=== PATIENT | female | born 1935 | race Caucasian/White ===

== ENCOUNTER 2018-09-13 14:18 | Inpatient (IN) | payer OTHER ==
[~2018-09-13] VITALS: Ht 157.5 cm; Wt 54.1 kg
[2018-09-13 15:25] VITALS: Ht 157.5 cm; Wt 54.1 kg
--- NOTE | 2018-09-13 15:46 | NUR ---
PATIENT BIB [facility] FOR FALL AND ABRASIONS TO BILATERAL HANDS. PATIENT IS ALERT AND ORIENTED X 3. SHE STATES THAT SHE WAS DIAGNOSED WITH PARKINSONS DISEASE IN 2006. TODAY, WHILE WAITING FOR ASSISTANCE FROM HER CAREGIVER, SHE VOMITED HER LUNCH AND SUBSEQUENTLY FELL. BS ACTIVE X 4 QUADS, PATIENT DENIES NAUSEA NOW. PATIENT HAS BILATERAL UPPER AND LOWER EXTREMITY WEAKNESS DUE TO HER PARKINSONS DISEASE. PATIENT SPEAKS SLOWLY. BREATHING IS EVEN AND UNLABORED, NO ADDITIONAL S/S OF DISTRESS NOTED. WILL CONTINUE TO MONITOR.
[2018-09-13 16:51] LABS: CALCIUM 9.7 mg/dL (8.5-10.1); CARBON DIOXIDE 32.4 mmol/L (21-32); CHLORIDE SERUM 101 mmol/L (98-107); CREATININE SERUM 0.8 mg/dL (0.6-1.0); GLUCOSE SERUM 100 mg/dL (74-106); POTASSIUM SERUM 3.6 mmol/L (3.5-5.1); SODIUM SERUM 142 mmol/L (136-145)
[2018-09-13 16:56] LABS: ALBUMIN 3.5 g/dL (3.4-5.0); ALKALINE PHOSPHATASE 84 U/L (46-116); ALT/SGPT 9 U/L (14-59); AST/SGOT 17 U/L (15-37); BILIRUBIN TOTAL 0.5 mg/dL (0.20-1.00)
[2018-09-13 17:00] LABS: BASOPHIL % 0.3 % (0-2); PLATELET COUNT 334 x10^3mcL (130-400); RED CELL DISTRIBUTION WIDTH 13.6 % (11.5-14.5)
--- NOTE | 2018-09-13 17:40 | NUR ---
PATIENT ON GURNEY, RELAXED WITH NO S/S OF DISTRESS NOTED. BREATHING IS EVEN AND UNLABORED. GURNEY PLACED IN LOW POSITION, CALL LIGHT WITHIN REACH, SON IS BEDSIDE. PT VOICES NO CONCERNS AT THIS TIME.
--- NOTE | 2018-09-13 18:41 | NUR ---
WENT TO HELP PATIENT TO BSC, PATIENT WAS INCONTINENT OF BOWEL AND BLADDER. CLEANED PATIENT UP AND PLACED BACK IN BED. BREATHING EVEN AND UNLABORED, NO ADDITIONAL S/S OF DISTRESS NOTED. WILL CONTINUE TO MONITOR.
--- NOTE | 2018-09-13 19:10 | NUR ---
REPORT RECEIVED FROM LAKSHMI HASSAN. PT LAYING IN BED, AWAKE AND ALERT, 2 BED RAILS UP, BED IN LOW AND LOCKED POSITION, CALL LIGHT W/IN REACH. NAD NOTED AT THIS TIME.
--- NOTE | 2018-09-13 19:21 | NUR ---
PROVIDED REPORT TO SONYA PATEL FOR RESUMPTION OF CARE.
[2018-09-13 19:25] LABS: microscopic required? YES; urine erythrocyte TRACE (NEGATIVE)
--- NOTE | 2018-09-13 20:32 | NUR ---
MEDICATION ADMINISTERED PER MD ORDER
[2018-09-13] MEDS ORDERED: SINEMET 25-1001 TAB (21:12)
[2018-09-13] MEDS ORDERED: MULTI-VITAMINS1 TAB PO (21:12)
--- NOTE | 2018-09-13 21:58 | NUR ---
REPORT GIVEN TO LARRY HASSAN
--- NOTE | 2018-09-13 22:20 | NUR ---
RECEIVED PT FROM ED VIA RUT ACCOMPANIED BY RN. AA&O X3. NO SOB ON ROOM AIR. BREATHING EVEN AND UNLABORED. NO C/O PAIN. NO DISTRESS NOTED. IV TO LFA, INTACT. DRESSING TO RIGHT HAND, C/D/I. SAFETY MEASURES IN PLACE. BED IN LOWEST POSITION. SIDE RAILS UP X2. BED ALARM ON. DEMONSTRATED HOW TO USE THE CALL LIGHT. CALL LIGHT WITHIN REACH.
--- NOTE | 2018-09-13 23:00 | NUR ---
PT VOIDED W/ YELLOW URINE TO BED. CHANGED LINENS, SHEETS, CLEANED PERINEAL AREA. PT TOLERATED WELL. WILL CONT TO MONITOR.
[2018-09-14 00:02] LABS: MAGNESIUM 2.4 mg/dL (1.8-2.4); PHOSPHOROUS 3.5 mg/dL (2.5-4.9)
--- NOTE | 2018-09-14 00:11 | NUR ---
DR ROJAS @ BEDSIDE. NURSING UPDATES. NO NEW ORDERS @ THIS TIME. RIGHT WRIST/HAND SKIN TEAR MEASURED W/ PICTURES TAKEN. LENGTH 3CM W/ 1CM WIDTH W/ NO DEPTH/VISIBLE TISSUE/BONE. SKIN ZGUARD APPLIED TO BUTTOCKS FOR BLANCHABLE REDNESS.
[2018-09-14 00:15] VITALS: BP 162/58
--- NOTE | 2018-09-14 01:30 | NUR ---
DR ROJAS NOTIFIED OF HIGH BLOOD PRESSURE AND NS INFUSING @ 100ML/HR. RECOMMENDED REVIEWING IF N/S SHOULD BE REDUCED IN RATE. STATED SHE WOULD LOOK AND REVIEW IT AND CHANGE IF NEED BE. AWAITING ORDERS.
--- NOTE | 2018-09-14 02:03 | NUR ---
PT SLEEPING AT THIS TIME. NO SOB ON ROOM AIR. BREATHING EVEN AND UNLABORED. NO DISTRESS NOTED. SAFETY MEASURES IN PLACE. CALL LIGHT WITHIN REACH. BED ALARM ON. WILL CONTINUE TO MONITOR.
--- NOTE | 2018-09-14 05:28 | NUR ---
X-RAY TECH @ BEDSIDE FOR MORNING XRAY OF WRIST.
[2018-09-14 05:56] VITALS: BP 156/56
[2018-09-14 06:31] LABS: BASOPHIL % 0.4 % (0-2); PLATELET COUNT 267 x10^3mcL (130-400); RED CELL DISTRIBUTION WIDTH 13.8 % (11.5-14.5)
--- NOTE | 2018-09-14 06:32 | NUR ---
PT SLEPT WELL THROUGHOUT SHIFT. NO SOB ON ROOM AIR. NO C/O PAIN. NO DISTRESS NOTED. ALL NEEDS ATTENDED TO. SAFETY MEASURES MAINTAINED. CALL LIGHT WITHIN REACH. BED ALARM ON. WILL ENDORSE CONTINUITY OF CARE TO ONCOMING RN.
[2018-09-14 06:58] LABS: CALCIUM 8.6 mg/dL (8.5-10.1); CARBON DIOXIDE 30.4 mmol/L (21-32); CHLORIDE SERUM 105 mmol/L (98-107); CREATININE SERUM 0.8 mg/dL (0.6-1.0); GLUCOSE SERUM 80 mg/dL (74-106); MAGNESIUM 2.3 mg/dL (1.8-2.4); PHOSPHOROUS 3.5 mg/dL (2.5-4.9); POTASSIUM SERUM 3.3 mmol/L (3.5-5.1); SODIUM SERUM 143 mmol/L (136-145)
--- NOTE | 2018-09-14 08:00 | NUR ---
PT IS AAOX3. NO SOB RM AIR. DENIES PAIN AT THIS TIME. GENERALIZED WEAKNESS. IVF NSS AT 75 ML/HR INFUSING; LFA SITE PATENT AND WITHOUT INFILTRATION. NSG ASSESSMENT DONE; SAFETY AND FALL PRECAUTION REINFORCED; WILL CONTINUE TO MONITOR STATUS.
[2018-09-14 08:48] VITALS: BP 155/74
--- NOTE | 2018-09-14 11:00 | NUR ---
SEEN BY PHYSICAL THERAPIST TODAY;
[2018-09-14 12:39] VITALS: BP 128/48
[2018-09-14 16:58] VITALS: BP 133/47
--- NOTE | 2018-09-14 18:13 | NUR ---
NO SIGNIFICANT CHANGES IN NEURO STATUS. PT IS OX4, SPEECH CLEAR, ABLE TO FOLLOW VERBAL COMMANDS AND MAKE NEEDS KNOWN. WILL CONTINUE TO MONITOR STATUS.
--- NOTE | 2018-09-14 18:33 | NUR ---
IVF SITE ON THE LFA IS LEAKING. CATH TAKEN OUT WHICH IS INTACT; PT WANTS TO WAIT FOR RESITE UNTIL VISITOR LEAVES.
--- NOTE | 2018-09-14 19:16 | NUR ---
IVF RESITED ON THE RFA WITH ANGIO 24 BY SONYA ALEXANDRA. IVF RESUMED NSS AT 75 ML/HR.
--- NOTE | 2018-09-14 19:50 | NUR ---
RECEIVED REPORT FROM DAY SHIFT RN. PT RESTING IN BED WITH EYES CLOSED. EASILY AROUSABLE WITH VERBAL STIMULI. NO SOB ON ROOM AIR. NO C/O PAIN. NO DISTRESS NOTED. DRESSING TO RIGHT HAND, CDI. SAFTEY MEASURES IN PLACE. BED IN LOWEST POSITION. SIDE RAILS UP X2. INSTRUCTED PT TO USE THE CALL LIGHT FOR ASSISTANCE. CALL LIGHT WITHIN REACH.
[2018-09-14 20:27] LABS: AMPHETAMINE QUAL UR NONE DETECTED (See below)
[2018-09-14 21:50] VITALS: BP 134/53
--- NOTE | 2018-09-15 02:15 | NUR ---
PT SLEEPING AT THIS TIME. BREATHING EVEN AND UNLABORED. NO FACIAL GRIMACING. NO DISTRESS NOTED. SAFETY MEASURES IN PLACE. CALL LIGHT WITHIN REACH. WILL CONTINUE TO MONITOR.
[2018-09-15 05:51] VITALS: BP 148/63
--- NOTE | 2018-09-15 06:27 | NUR ---
PT SLEPT WELL THROUGHOUT SHIFT. NO SOB ON ROOM AIR. NO C/O PAIN. NO DISTRESS NOTED. CLEANED PT, REPOSITIONED AND MADE COMFORTABLE. SAFETY MEASURES MAINTAINED. CALL LIGHT WITHIN REACH. WILL ENDORSE CONTINUITY OF CARE TO ONCOMING RN.
[2018-09-15 06:34] LABS: BASOPHIL % 0.3 % (0-2); PLATELET COUNT 265 x10^3mcL (130-400); RED CELL DISTRIBUTION WIDTH 14.2 % (11.5-14.5)
[2018-09-15 06:40] LABS: CALCIUM 8.4 mg/dL (8.5-10.1); CHLORIDE SERUM 107 mmol/L (98-107); CREATININE SERUM 0.6 mg/dL (0.6-1.0); GLUCOSE SERUM 86 mg/dL (74-106); PHOSPHOROUS 3.2 mg/dL (2.5-4.9); POTASSIUM SERUM 3.7 mmol/L (3.5-5.1); SODIUM SERUM 143 mmol/L (136-145)
--- NOTE | 2018-09-15 08:00 | NUR ---
RECEIVED PATIENT ALERT/ORIENTED TO PERSON/PLACE AND TIMES. ABLE TO MEDE NEEDS KNOWN. ABLE TO FOLLOW COMMAND. TELE#18, SR W/ DEPRESSED S-T SEGMENT. HR = 61. DENIED CHESET PAIN. NO RESP DISTRESS ON RA. O2 SAT 96%. FINISHED 50% OF BREAKFAST BY ASSIST. IVF OF NS 75CC/HR. IV SITE TO RFA INRACT. URINE INCONT. MAX ASSIST FOR ADL'S. NO S/S OF PAIN. CALL LUDIVINA [place]. PATIENT IS DNR.
[2018-09-15 10:52] VITALS: BP 184/78
[2018-09-15 11:15] VITALS: BP 164/79
--- NOTE | 2018-09-15 11:15 | NUR ---
B/P = 184/78 (LUE). RECHECKED B/P 164/79 (RUE). NOTIFIED TO JOVAN GARCIA. NO NEW ORDER GIVEN.
[2018-09-15 14:40] VITALS: BP 156/61
[2018-09-15 18:21] VITALS: BP 199/72
--- NOTE | 2018-09-15 18:45 | NUR ---
URINE INCONT. CHANGED X4. NO BM SEEN THIS SHIFT. IV SITE TO RFA INTACT. NO S/S OF PAIN. ENDORSED CARE TO NOC NURSE.
--- NOTE | 2018-09-15 19:25 | NUR ---
B/P = 199/72 (RUE), REPORTED TO DR. MCNAIR VIA [facility]. ENDORSED CARE TO [facility] NURSE.
--- NOTE | 2018-09-15 19:40 | NUR ---
RECEIVED REPORT FROM DAY SHIFT RN. PT RESTING IN BED. AA&O X4. NO SOB ON ROOM AIR. BREATHING EVEN AND UNLABORED. NO C/O CHEST PAIN. NO DISTRESS NOTED. IV TO RFA, NS INFUSING. SAFETY MEASURES IN PLACE. BED IN LOWEST POSITION. SIDE RAILS UP X2. INSTRUCTED PT TO USE THE CALL LIGHT FOR ASSISTANCE. CALL LIGHT WITHIN REACH. BED ALARM ON.
[2018-09-15 21:35] VITALS: BP 167/60
--- NOTE | 2018-09-16 02:38 | NUR ---
PT SLEEPING AT THIS TIME. NO SOB ON ROOM AIR. BREATHING EVEN AND UNLABORED. NO DISTRESS NOTED. CALL LIGHT WITHIN REACH. WILL CONTINUE TO MONITOR.
[2018-09-16 05:38] VITALS: BP 180/75
[2018-09-16 06:48] LABS: CALCIUM 8.7 mg/dL (8.5-10.1); CARBON DIOXIDE 28.7 mmol/L (21-32); CHLORIDE SERUM 105 mmol/L (98-107); CREATININE SERUM 0.7 mg/dL (0.6-1.0); GLUCOSE SERUM 90 mg/dL (74-106); POTASSIUM SERUM 3.6 mmol/L (3.5-5.1); SODIUM SERUM 142 mmol/L (136-145)
--- NOTE | 2018-09-16 07:24 | NUR ---
PT SLEPT WELL THROUGHOUT SHIFT. NO SOB ON ROOM AIR. NO C/O CHEST PAIN. NO DISTRESS NOTED. HIGH BP THIS MORNING. PER DR GREENBERG, GIVE LISINOPRIL EARLY. SAFETY MEASURES MAINTAINED. CALL LIGHT WITHIN REACH. CONTINUITY OF CARE ENDORSED TO DAY SHIFT RN.
--- NOTE | 2018-09-16 08:00 | NUR ---
ALERT AND ORIENTED. SLOW RESPONSES. VERY SOFT SPOKEN. GENERALIZED WEAKNESS, USES WHEELCHAIR AT [place]. ASSIST WITH MOST ADL'S. BREATHING FREELY ON RA. DENIES ANY PAIN. REPOSITIONED FOR BREAKFAST. NS INFUSING 25 CC HOUR TO RT FA. ROOM NEAR NURSES STATION. CALL LIGHT WITH IN REACH. BED ALARM O N.
[2018-09-16 08:12] LABS: BASOPHIL % 0.7 % (0-2); PLATELET COUNT 290 x10^3mcL (130-400); RED CELL DISTRIBUTION WIDTH 13.5 % (11.5-14.5)
[2018-09-16 09:00] VITALS: BP 212/75
[2018-09-16 12:30] VITALS: BP 184/69
[2018-09-16 14:57] VITALS: BP 174/71
--- NOTE | 2018-09-16 15:34 | NUR ---
SPOKE WITH RU LEE. HECTOR FROM [facility] WILL BE COMING TO [facility] FOR RETURN TO [facility]. DONNA MIRELES MADE AWARE,
[2018-09-16 17:38] VITALS: BP 211/84
--- NOTE | 2018-09-16 17:39 | NUR ---
Rizwan GARCIA NP RE: PTS BP 211/84 HR 77. NEW ORDER TO HOLD 2100 DOSE SINEMET.
--- NOTE | 2018-09-16 17:46 | NUR ---
PT SEEN BY HECTOR FROM [facility]. [facility] DOES NOT ACCEPT PARAMETERS ON BP MEDS. PT WILL BE SEEN BY WEEKLY BY MEDICAL STAFF. ADJUSTMENTS IN BP MEDS CAN BE ADJUSTED THEN. HECTOR WENT TO GO SEE PATHOLOGY ASSISTANT.PT SON CHI FRANK.
--- NOTE | 2018-09-16 18:56 | NUR ---
RESTING QUIETLY . BREATHING FREELY ON RA. MOD TOMAX ASSIST WITH ALL MEDS. SON CHI WAS WITH PT MOST OF THE DAY. NO C/O PAIN. NS INFUISNG 40 CC HOUR. SINEMET TO BE HELD THIS EVENING 2100 DOSE. CALL LIGHT WITHIN REACH.
--- NOTE | 2018-09-16 19:50 | NUR ---
RECEIVED PT FROM DAYSHIFT NURSEMACI-SONYA. PT IS A/O X3. ON TELE# 18, SR WITH DEPRESSED ST. PERIPHERAL PULSES PALPABLE. LUNG SOUNDS CTA. ON ROOM AIR. O2 SAT- 95%. ACTIVE BOWEL SOUNDS IN ALL QUADRANTS. PT IS INCONTINENT. PT HAS GENERALIZED WEAKNESS. DRESSING ON R HAND, CDI. IV CATH TO RFA IS PATENT, AND RUNNING NS AT 40 CC/HR. WILL CONTINUE TO MONITOR.
[2018-09-16 21:22] VITALS: BP 148/63
--- NOTE | 2018-09-17 06:02 | NUR ---
PT SEEN ASLEEP. BREATHING IS EVEN AND UNLABORED. NO ACUTE DISTRESS NOTED AT THIS TIME. WILL ENDORSE CONTINUITY OF CARE TO DAYSHIFT NURSE.
[2018-09-17 06:15] VITALS: BP 172/72
[2018-09-17 06:26] LABS: BASOPHIL % 0.5 % (0-2); PLATELET COUNT 290 x10^3mcL (130-400); RED CELL DISTRIBUTION WIDTH 14.1 % (11.5-14.5)
[2018-09-17 06:34] LABS: CALCIUM 8.9 mg/dL (8.5-10.1); CARBON DIOXIDE 27.4 mmol/L (21-32); CHLORIDE SERUM 107 mmol/L (98-107); CREATININE SERUM 0.6 mg/dL (0.6-1.0); GLUCOSE SERUM 76 mg/dL (74-106); POTASSIUM SERUM 3.7 mmol/L (3.5-5.1); SODIUM SERUM 144 mmol/L (136-145)
--- NOTE | 2018-09-17 06:42 | NUR ---
CALLED DR. HENNESSY, AND NOTIFIED HIM OF ELEVEATED BLOOD PRESSURE 206/76, 197/83 AND 204/75. ORDERED TO GIVE ZESTRIL NOW.
--- NOTE | 2018-09-17 06:48 | NUR ---
ADMINISTERED ZESTRIL ORDERED BY DR. HENNESSY.
--- NOTE | 2018-09-17 07:35 | NUR ---
RECEIVED PT FROM VISUAL MERCHANDISING MANAGER. PT ASLEEP BUT AROUSABLE. DENIES PAIN/HEADACHE/CHEST PAIN AT THIS TIME. PT ON ROOM AIR, NO RESP DISTRESS NOTED. LUNGS CTA. IV ACCESS RIGHT ARM INFUSING NS AT 40ML/HR C/D/I. NO REDNESS OR SWELLING NOTED. PT HAS SKIN TEAR ON RIGHT HAND, DRESSING C/D/I. DENIES ANY ISSUES WITH ELIMINATION AT THIS TIME. ON TELE #18. SAFETY MEASURES IN PLACE, BED LOW AND LOCKED. CALL LIGHT WITHIN REACH.
--- NOTE | 2018-09-17 07:37 | NUR ---
ENDORSED CONTINUITY OF CARE TO CANDY
[2018-09-17] MEDS ORDERED: ZESTRIL20 MG PO (08:50)
[2018-09-17] MEDS ORDERED: NOR5 PO (08:51)
[2018-09-17 10:49] VITALS: BP 172/76
--- NOTE | 2018-09-17 11:10 | NUR ---
PT AWAKE, FAMILY AT BEDSIDE. NO ACUTE DISTRESS NOTED. BLOOD PRESSURE RE-CHECK 172/76 (108) HR 84. WILL CONT TO MONITOR, SAFETY MAINTAINED.
--- NOTE | 2018-09-17 12:47 | NUR ---
CALLED WAN GEOGRAPHIC INFORMATION SCIENTIST TO REPORT PATIENT BP 180/76 (98) HR 74. PER GEOGRAPHIC INFORMATION SCIENTIST PARAMETERS FOR HYDRALAZINE PRN IS SBP ABOVE 160.
[2018-09-17 12:55] VITALS: BP 194/80
--- NOTE | 2018-09-17 13:02 | NUR ---
PT BLOOD PRESSURE 194/80 (103) HR 76. PT DENIES HEADACHE OR PAIN AT THIS TIME. HYDRAXLAZINE ADMINISTERED ORDERED PRN (SEE EMAR). WAN Jc MOTOR VEHICLE EXAMINER AWARE.
--- NOTE | 2018-09-17 13:17 | NUR ---
CALLED AND SPOKE TO ESSIE(N.P.) ASSIGNED TO THIS PT AND ASKED HER OF PLAN RE-CURRENT HIGH BP. ESSIE SAYS SHE WILL ADD COZAAR FOR BP. JOHANA HASSAN ASSIGNED TO THIS PT MADE AWARE OF ABOVE.
[2018-09-17 13:24] VITALS: BP 127/50; BP 157/76
[2018-09-17 13:56] VITALS: BP 127/50
--- NOTE | 2018-09-17 13:57 | NUR ---
PT BP AFTER ADMINISTRATION OF HYDRALAZINE 127/50 (72) HR 96. NO ACUTE DISTRESS NOTED. SAFETY MEASURES MAINTAINED.
--- NOTE | 2018-09-17 15:12 | NUR ---
PHYSICAL THERAPY DAILY NOTES CO-SIGN All documentation done by the Vacuum Bottle Assembler for 09/17/18 has been reviewed. I agree with the documentation. Reviewed/Co-Signed by: Tricia Choe PT Documentation Done by:ARMINDA CARRIZALES
[2018-09-17] MEDS ORDERED: COZ25 PO (16:40)
[2018-09-17 17:02] VITALS: BP 157/76
--- NOTE | 2018-09-17 17:15 | NUR ---
PT DISCHARGED TO ASSISTED LIVING VIA WHEELCHAIR IN SON'S CAR. DISCHARGE INSTRUCTIONS GIVEN TO PATIENT AND SON. VERBALIZED UNDERSTANDING, EDUCATION PROVIDED. DISCHARGE PHOTOS OF RIGHT AND LEFT HAND SKIN TEAR DOCUMENTED. IV REMOVED WITH CATHETER INTACT. NO REDNESS, SWELLING OR BLEEDING NOTED. SAFETY MEASURES MAINTAINED. PT WHEELED TO CAR WITH ASSISTANT BASEBALL COACH. TELE BOX 18 RETURNED TO [facility].
== END 2018-09-17 17:17 | DRG 304 ==
LOC: ED 14:18 → EDBD 14:18 → DU 21:09
PROVIDERS: Emergency Medicine; ADMIT General Practice
DX: I16.0 Hypertensive urgency (principal); N17.0 Acute kidney failure with tubular necrosis; N39.0 Urinary tract infection, site not specified; G90.8 Other disorders of autonomic nervous system; S61.411A Laceration without foreign body of right hand, initial encounter; G20 Parkinson's disease; F02.80 Dementia in other diseases classified elsewhere, unspecified severity, without behavioral disturbance, psychotic disturbance, mood disturbance, and anxiety; Z68.21 Body mass index [BMI] 21.0-21.9, adult; Z66 Do not resuscitate; Z91.81 History of falling; W01.0XXA Fall on same level from slipping, tripping and stumbling without subsequent striking against object, initial encounter; Y92.091 Bathroom in other non-institutional residence as the place of occurrence of the external cause
CPT/HCPCS: 83880; 87804; 97110-GP; 97116-GP; 97530-GP; C9113; J0360; J0696; J2405; J2765; J3490; J7030; J7040; Q0092

== ENCOUNTER 2019-01-30 18:22 | Emergency (ER) | payer OTHER ==
[~2019-01-30] VITALS: Ht 152.4 cm; Wt 59.0 kg
[~2019-01-30 18:22] MED LIST: COZ25 PO; MULTI-VITAMINS1 TAB PO; NOR5 PO; SINEMET 25-1001 TAB; ZESTRIL20 MG PO
[2019-01-30 18:26] VITALS: Ht 152.4 cm; Wt 59.0 kg
[2019-01-30 19:01] LABS: BASOPHIL % 1.3 % (0-2); PLATELET COUNT 277 x10^3mcL (130-400)
[2019-01-30 19:09] LABS: RED CELL DISTRIBUTION WIDTH 15.1 % (11.5-14.5)
[2019-01-30 19:11] LABS: CALCIUM 9.3 mg/dL (8.5-10.1); CARBON DIOXIDE 29.2 mmol/L (21-32); CHLORIDE SERUM 109 mmol/L (98-107); CREATININE SERUM 0.7 mg/dL (0.6-1.0); GLUCOSE SERUM 85 mg/dL (74-106); POTASSIUM SERUM 3.3 mmol/L (3.5-5.1); SODIUM SERUM 147 mmol/L (136-145)
[2019-01-30 19:17] LABS: ALBUMIN 3.2 g/dL (3.4-5.0); ALKALINE PHOSPHATASE 79 U/L (46-116); ALT/SGPT 18 U/L (14-59); AST/SGOT 10 U/L (15-37); BILIRUBIN TOTAL 0.36 mg/dL (0.20-1.00); TOTAL PROTEIN, SERUM 7.5 g/dL (6.4-8.2)
[2019-01-30 19:45] LABS: microscopic required? YES; urine erythrocyte TRACE (NEGATIVE)
[2019-01-30 19:56] LABS: AMPHETAMINE QUAL UR NONE DETECTED (See below)
[2019-01-31 00:19] VITALS: BP 185/77
== END 2019-01-31 00:19 | disposition home or self-care (01) ==
LOC: ED 18:22
PROVIDERS: Emergency Medicine
DX: N39.0 Urinary tract infection, site not specified (principal); F32.9 Major depressive disorder, single episode, unspecified; G20 Parkinson's disease; Z98.890 Other specified postprocedural states
CPT/HCPCS: 36415; 83880; G0480; J0696